=== PATIENT | male | born 1955 | race Caucasian/White ===

== ENCOUNTER → 2017-03-31 | Outpatient (CLI) | payer OTHER ==
--- NOTE | 2017-04-01 09:57 | MR ---
MRI CERVICAL SPINE: CLINICAL HISTORY: Cervical region spondylolisthesis per order. Headache with neck pain for 5 years pe r patient TECHNIQUE: Multiplanar, multisequence imaging of the cervical spine is performed without IV contrast. COMPARISON: Outside MRI cervical spine August 17, 2015. FINDINGS: Sagittal images of the cervical spine show the craniocervical junction to appear within nor mal limits. The cervical and upper thoracic spinal cord is normal in course, caliber, and signal. V ertebral alignment is anatomic. The vertebral body heights are normal. There is mild disc space gustavo rowing C5-C6 level redemonstrated. Small posterior disc herniation is seen at this level as well as a t C6-C7 level on sagittal images. Mild anterior spurring in the mid cervical spine is redemonstrated. There is heterogeneous increased T1 and T2 signal involving anterior inferior C5 endplate consistent with Modic type II degenerative change. Axial images show the C2-C3 level to appear within normal limits. Axial images at C3-C4 level show tiny central disc protrusion minimally effacing anterior thecal sac on axial image 43 and sagittal image 7, this in retrospect is not significantly changed from prior ex am. Bilateral neural foramina remain patent. Axial images at C4-C5 level remain within normal limits. Axial images at C5-C6 level show broad-based right paracentral disc protrusion effacing anterior thec al sac and causing asymmetric moderate right-sided neural foraminal narrowing. Left-sided neural fora men is mildly narrowed as there is some uncovertebral facet arthropathy felt present bilaterally. Axial images at C6-C7 level do not show disc herniation as well as sagittal image 7. Bilateral neural foramina remain patent. Axial images at C7-T1 level are felt to remain within normal limits. IMPRESSION: Stable multilevel degenerative changes in cervical spine most prominent at C5-C6 level as detailed above.
== END | disposition home or self-care (01) ==
LOC: RADMRIMAIN 17:03
PROVIDERS: ATTEND Physical Medicine & Rehabilitation
DX: M47.812 Spondylosis without myelopathy or radiculopathy, cervical region (principal)
CPT/HCPCS: 72141

== ENCOUNTER → 2019-05-01 | Outpatient (CLI) | payer MEDICARE ==
--- NOTE | 2019-05-02 12:01 | ECHOF ---
Referral Reason:R60.0 localized edema MEASUREMENTS -------- HEIGHT: 185.4 cm WEIGHT: 83.9 kg BP: 142/82 RVIDd: 4.1 cm (< 3.3) IVSd: 1.4 cm (0.6 - 1.1) LVIDd: 4.5 cm (3.9 - 5.3) LVPWd: 1.3 cm (0.6 - 1.1) IVSs: 1.6 cm LVIDs: 4.1 cm LVPWs: 1.5 cm LA Diam: 2.5 cm (2.7 - 3.8) LAESV Index (A-L): 27.54 ml/m Ao Diam: 3.7 cm (2.0 - 3.7) AV Cusp: 2.3 cm (1.5 - 2.6) MV EXCURSION: 16.226 mm (> 18.000) MV EF SLOPE: 30 mm/s (70 - 150) EPSS: 0.7 cm MV E Jeancarlos: 0.58 m/s MV DecT: 203 ms MV A Jeancarlos: 0.78 m/s MV E/A Ratio: 0.75 RAP: 5.00 mmHg RVSP: 26.84 mmHg TAPSE: 18.55 mm FINDINGS -------- Sinus rhythm. This was a technically adequate study. The left ventricular size is normal. There is moderate concentric left ventricular hypertrophy. O verall left ventricular systolic function is normal with, an EF between 60 - 65 %. The right ventricle is moderately enlarged. Normal LA size by volume 22+/-6 ml/m2. The right atrium is normal in size. Interatrial and interventricular septum intact. The aortic valve is trileaflet and appears structurally normal. There is trace to mild mitral regurgitation. Mild tricuspid regurgitation present. Right ventricular systolic pressure is normal at < 35 mmHg. Trace/mild (physiologic) pulmonic regurgitation. The aortic root size is normal. Normal inferior vena cava with normal inspiratory collapse consistent with estimated right atrial pre ssure of 5 mmHg. The inferior vena cava is mildly dilated. There is no pericardial effusion. CONCLUSIONS -------- 1. Sinus rhythm. 2. This was a technically adequate study. 3. The left ventricular size is normal. 4. There is moderate concentric left ventricular hypertrophy. 5. Overall left ventricular systolic function is normal with, an EF between 60 - 65 %. 6. The right ventricle is moderately enlarged. 7. Normal LA size by volume 22+/-6 ml/m2. 8. The right atrium is normal in size. 9. Interatrial and interventricular septum intact. 10. The aortic valve is trileaflet and appears structurally normal. 11. There is trace to mild mitral regurgitation. 12. Mild tricuspid regurgitation present. 13. Right ventricular systolic pressure is normal at < 35 mmHg. 14. Trace/mild (physiologic) pulmonic regurgitation. 15. The aortic root size is normal. 16. Normal inferior vena cava with normal inspiratory collapse consistent with estimated right atrial pressure of 5 mmHg. 17. The inferior vena cava is mildly dilated. 18. There is no pericardial effusion. FIRE SUPERVISOR: Aga Richardson RDCS
== END | disposition home or self-care (01) ==
LOC: RADECHMAIN 16:30
PROVIDERS: ATTEND Family Medicine
DX: I07.1 Rheumatic tricuspid insufficiency (principal); I86.8 Varicose veins of other specified sites
CPT/HCPCS: 93306

== ENCOUNTER 2020-09-09 13:52 | Inpatient (IN) | payer MEDICARE ==
[2020-09-09] MEDS ORDERED: SODIUM CHLORIDE 0.9% 500 ML 500 ML IV ONE (14:38)
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
[2020-09-09 15:29] LABS: Anisocytosis Slight; Hypochromasia Marked; MCH 17.3 pg (25.0-35.0); MCHC 28.2 g/dL (31.0-37.0); MCV 61.4 fL (80.0-100.0); Mean Platelet Volume 7.4; Microcytosis Marked; Platelet Count 558 k/uL (150-450); Poikilocytosis Moderate; RBC 3.13 m/uL (4.30-5.90); RDW 18.2 % (11.5-15.5)
[2020-09-09 15:35] LABS: Albumin 3.9 g/dL (3.5-5.0); Calcium 9.6 mg/dL (8.4-10.2); HGB 5.4 gm/dL (13.0-17.5); Potassium 4.3 mmol/L (3.5-5.1); Total Bilirubin 0.8 mg/dL (0.2-1.3); Total Protein 6.7 g/dL (6.3-8.2)
[2020-09-09 15:36] LABS: HCT 19.3 % (39.0-53.0)
[2020-09-09] MEDS ORDERED: PANTOPRAZOLE 40 MG/10 ML VIAL IVP STA (15:41)
[2020-09-09 15:46] LABS: INR 1.1 (<1.2); Partial Thromboplastin Time 22.9 sec (22.0-30.0); Prothrombin Time 11.5 sec (9.0-12.0)
[2020-09-09 15:48] LABS: Eosinophils # (M) 0.08 k/uL (0-0.7); Lymphocytes # (M) 1.05 k/uL (1.0-4.8); Monocytes # (M) 0.41 k/uL (0-1.0); Neutrophils # (M) 6.64 k/uL (1.3-7.7); Neutrophils % (M) 82 %; Nucleated Red Blood Cells 1 /100 WBC (0-0); Total Cells Counted 200; WBC 8.1 k/uL (3.8-10.6)
[2020-09-09 15:49] LABS: Polychromasia Present
--- NOTE | 2020-09-09 17:14 | CT ---
EXAM: CT brain wo con CLINICAL HISTORY: Altered mental status. COMPARISON: None TECHNIQUE: Contiguous axial noncontrast images of the brain were obtained. Coronal and sagittal refor mats were generated and reviewed. Automated dose reduction was used for this exam. FINDINGS: There is no evidence for intracranial hemorrhage, mass effect, midline shift or acute large vessel te rritory infarct. There is moderate bifrontal lobe encephalomalacia. There is moderate parenchymal vol ume loss. Otherwise mild white matter disease. Ventricular size and configuration is within normal limits for degree of parenchymal volume. The paranasal sinuses are clear. The mastoid air cells are clear. No evidence for calvarial fracture. IMPRESSION: No acute intracranial abnormality. Chronic findings as above.
[2020-09-09] MEDS ORDERED: NALOXONE 0.4 MG/ML 1 ML VIAL IV PRN (17:21)
[2020-09-09] MEDS ORDERED: lamoTRIgine 100 MG TAB PO SCH (21:00)
[2020-09-09] MEDS: TEMAZEPAM 15 MG CAP PO SCH (22:42)
[2020-09-09] MEDS: PREGABALIN 75 MG CAP PO SCH (22:42)
[2020-09-10] MEDS: PANTOPRAZOLE 40 MG/10 ML VIAL IVP SCH ×3 (01:29→20:41)
[2020-09-10] MEDS: SODIUM CHLORIDE 0.9% 1,000 ML IV SCH ×3 (01:30→20:41)
[2020-09-10] MEDS ORDERED: LORazepam 2 MG/ML INJ IV PRN ×3 (04:00)
[2020-09-10 08:13] LABS: Anisocytosis Moderate; Basophils % (A) 0 %; Eosinophils # (A) 0.1 k/uL (0-0.7); Eosinophils % (A) 1 %; HCT 22.2 % (39.0-53.0); Hypochromasia Marked; Lymphocytes # (A) 1.2 k/uL (1.0-4.8); Lymphocytes % (A) 18 %; MCH 19.8 pg (25.0-35.0); MCHC 29.4 g/dL (31.0-37.0); Mean Platelet Volume 7.9; Microcytosis Marked; Monocytes # (A) 0.3 k/uL (0-1.0); Monocytes % (A) 4 %; Neutrophils # (A) 5.2 k/uL (1.3-7.7); Neutrophils % (A) 75 %; Platelet Count 450 k/uL (150-450); Poikilocytosis Marked
[2020-09-10 08:21] LABS: HGB 6.5 gm/dL (13.0-17.5); MCV 67.4 fL (80.0-100.0)
[2020-09-10] MEDS: lamoTRIgine 100 MG TAB PO SCH (08:26)
[2020-09-10] MEDS: PREGABALIN 75 MG CAP PO SCH ×2 (08:26→20:41)
[2020-09-10] MEDS: SYMBICORT 160-4.5 MCG INHALER INHALATION SCH ×2 (08:38→20:00)
[2020-09-10] MEDS ORDERED: amLODIPine 10 MG TAB PO SCH (09:00)
[2020-09-10 09:09] LABS: African American GFR (CKD) >90 (>60 ml/min/1.73 sqM); Anion Gap 12 mmol/L; Blood Urea Nitrogen 28 mg/dL (9-20); Calcium 8.6 mg/dL (8.4-10.2); Carbon Dioxide 23 mmol/L (22-30); Chloride 97 mmol/L (98-107); Glucose 84 mg/dL (74-99); Non-African American GFR(CKD) 86 (>60 ml/min/1.73 sqM); Potassium 3.4 mmol/L (3.5-5.1); Sodium 132 mmol/L (137-145)
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
[2020-09-10] MEDS ORDERED: LIDOCAINE 1% (10MG/ML) FOR IV START INTRADERMA PRN (14:42)
[2020-09-10] MEDS ORDERED: PEG 3350-NA SULF,BICARB,CL/KCL 4,000 ML BOTTLE PO ONE (16:00)
[2020-09-10] MEDS: THIAMINE 100 MG TAB PO SCH (16:34)
[2020-09-10 17:56] LABS: % Iron Saturation 45.43 (15.00-50.00)
[2020-09-10 18:27] LABS: Appearance,Urine Cloudy (Clear); Bacteria,Urine Many /hpf; Bilirubin,Urine Negative (Negative); Blood,Urine Negative (Negative); Color,Urine Yellow; Glucose,Urine (UA) Negative (Negative); Ketones,Urine Negative (Negative); Leukocyte Esterase,Urine Large (Negative); Mucus,Urine Many /hpf; Nitrite,Urine Positive (Negative); Protein,Urine Trace (Negative); Specific Gravity,Urine 1.023 (1.001-1.035); Urobilinogen,Urine <2.0 mg/dL (<2.0); WBC,Urine 133 /hpf (0-5)
[2020-09-10 18:32] LABS: Amphetamine Screen,Urine Not Detected (NotDetected); Barbiturate Screen,Urine Not Detected (NotDetected); Benzodiazepines Screen,Urine Detected (NotDetected); Cocaine Screen,Urine Not Detected (NotDetected); Methadone Screen, Urine Not Detected (NotDetected); Opiate Screen,Urine Not Detected (NotDetected); Oxycodone Screen, Urine Not Detected (NotDetected); Phencyclidine Screen,Urine Not Detected (NotDetected); Tricyclic Antidepressant,Urine Not Detected (NotDetected); Urn Cannabinoid Scrn Not Detected (NotDetected)
[2020-09-10] MEDS ORDERED: SODIUM CHLORIDE 0.9% 500 ML 500 ML IV ONE (19:00)
[2020-09-10] MEDS: TEMAZEPAM 15 MG CAP PO SCH (20:41)
[2020-09-10 22:04] LABS: Glucose,Whole Blood 116 mg/dL (75-99)
[2020-09-10] MEDS ORDERED: MIDODRINE 5 MG TAB PO ONE (22:13)
[2020-09-10] MEDS ORDERED: FUROSEMIDE 10 MG/ML 2 ML VIAL IV ONE (22:14)
[2020-09-11] MEDS: LACTATED RINGERS 1,000 ML IV SCH ×2 (00:09→17:27)
[2020-09-11] MEDS: ALBUTEROL NEBULIZED 2.5 MG/3 ML INHALATION PRN (03:42)
[2020-09-11] MEDS: THIAMINE 100 MG TAB PO SCH ×2 (04:57→17:22)
[2020-09-11 08:19] LABS: Anisocytosis Moderate; HCT 25.3 % (39.0-53.0); HGB 7.9 gm/dL (13.0-17.5); Hypochromasia Marked; MCH 21.5 pg (25.0-35.0); MCHC 31.1 g/dL (31.0-37.0); MCV 69.3 fL (80.0-100.0); Microcytosis Marked; Platelet Count 378 k/uL (150-450); Poikilocytosis Marked; RBC 3.66 m/uL (4.30-5.90); RDW 23.5 % (11.5-15.5); WBC 7.6 k/uL (3.8-10.6)
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
[2020-09-11 08:41] LABS: ALT 10 U/L (4-49); AST 21 U/L (17-59); African American GFR (CKD) >90 (>60 ml/min/1.73 sqM); Albumin 2.8 g/dL (3.5-5.0); Alkaline Phosphatase 86 U/L (38-126); Anion Gap 9 mmol/L; Blood Urea Nitrogen 16 mg/dL (9-20); Calcium 8.1 mg/dL (8.4-10.2); Carbon Dioxide 27 mmol/L (22-30); Chloride 97 mmol/L (98-107); Glucose 92 mg/dL (74-99); Non-African American GFR(CKD) >90 (>60 ml/min/1.73 sqM); Potassium 3.2 mmol/L (3.5-5.1); Sodium 133 mmol/L (137-145); Total Bilirubin 1.2 mg/dL (0.2-1.3)
[2020-09-11] MEDS: PREGABALIN 75 MG CAP PO SCH ×2 (08:57→20:07)
[2020-09-11] MEDS: PANTOPRAZOLE 40 MG/10 ML VIAL IVP SCH ×2 (08:57→20:07)
[2020-09-11] MEDS: lamoTRIgine 100 MG TAB PO SCH (08:57)
[2020-09-11] MEDS ORDERED: ENOXAPARIN 30 MG/0.3 ML SYRINGE SQ SCH (09:00)
[2020-09-11] MEDS: SYMBICORT 160-4.5 MCG INHALER INHALATION SCH ×2 (09:34→21:30)
--- NOTE | 2020-09-11 10:04 | XR ---
EXAMINATION TYPE: XR chest 2V DATE OF EXAM: 09/11/2020 COMPARISON: None HISTORY: 65 year-old male shortness of breath TECHNIQUE: AP and lateral views FINDINGS: Heart mildly enlarged. Hyperinflation. Multifocal consolidation right perihilar region and left great er than right mid and lower lungs. IMPRESSION: COPD and mild cardiomegaly. There are multifocal areas of consolidation. Correlate for multifocal pne umonia including possibility of COVID pneumonia. Patchy pulmonary edema is also possible but may be l ess likely as no significant effusions are identified.
[2020-09-11] MEDS ORDERED: Potassium Replacement Protocol 1 EACH MISC MISCELLANE PRN (11:02)
--- NOTE | 2020-09-11 11:04 | P.PN ---
Subjective 65-year-old male was brought in by his for altered mental status patient is able to provide good history me alert oriented times close to 3 when I evaluated the patient but patient is a poor historian doesn't appear to have some alcohol related the encephalopathy chronic and dementia. Patient does drink alcohol every day. Not willing to quit alcohol patient is basically admitted for severe anemia with hemoglobin of around 5.5-, received are 2 units of PRBC transfusion and patient was in hemoglobin is 6.5 to give him 1 more unit of PRBC. Patient denied any blood in stools at all stools and panel will be obtained. Patient was started on Protonix. Patient is very clear about not quitting alcohol and he believes he doesn't drink much he only drinks after paint of hard liquor every day. Patient has low MCV . 09/11/2020 Patient doesn't have any more episodes of GI bleed patient can use to be in alcohol withdrawal precautions. Patient will undergo upper GI endoscopy patient is on 6 L of oxygen, chest x-ray there is a possibility of pulmonary edema. covid 19 PCI to is negative. We'll obtain a BNP and an echocardiogram. Patient blood pressure is still low because of which I'm not giving him on Lasix at this time. When his blood pressure can tolerate patient will be given a 20 mg of IV Lasix patient did urine is abnormal hand has a symptom any bacteria received antibiotics last night which will be discontinued if patient remains a bit hyponatremic still has some confusion. He is also being treated for alcohol withdrawals potassium is low which will be replaced. Constitutional: Denied any fatigue denied any fever. Cardio vascular: denied any chest pain, palpitations Gastrointestinal denied any nausea vomiting Pulmonary: Denied any shortness of breath cough Neurologic denied any new focal deficits he is a poor historian not a reliable historian All inpatient medications were reviewed and appropriate changes in these medications as dictated in the interval history and assessment and plan. Objective - Vital Signs Vital signs: Vital Signs Temp 99.5 F 09/11/20 08:00 Pulse 71 09/11/20 08:00 Resp 18 09/11/20 08:00 BP 93/62 09/11/20 08:00 Pulse Ox 95 09/11/20 08:00 Intake & Output 09/10/20 09/11/20 09/11/20 18:59 06:59 18:59 Intake Total 860 Output Total 750 600 Balance 110 -600 Weight 76.5 kg Intake: Oral 550 Blood Product 310 Rc As-1 Unit 310 [id number] Output: Urine 750 600 Other: Voiding Method Urinal Urinal # Voids 3 # Bowel Movements 1 - Exam PHYSICAL EXAMINATION: GENERAL: The patient is alert and oriented x3, not in any acute distress. Well developed, well nourished. HEENT: Pupils are round and equally reacting to light. EOMI. No scleral icterus. Does have conjunctival pallor. Normocephalic, atraumatic. No pharyngeal erythema. No thyromegaly. CARDIOVASCULAR: S1 and S2 present. No murmurs, rubs, or gallops. PULMONARY: Chest is clear to auscultation, no wheezing or crackles. ABDOMEN: Soft, nontender, nondistended, normoactive bowel sounds. No palpable organomegaly. MUSCULOSKELETAL: No joint swelling or deformity. EXTREMITIES: No cyanosis, clubbing, or pedal edema. NEUROLOGICAL: Gross neurological examination did not reveal any focal deficits. SKIN: No rashes. - Labs CBC & Chem 7: 09/11/20 07:43 09/11/20 07:43 Labs: Abnormal Lab Results - Last 24 Hours (Table) 09/09/20 09/10/20 09/10/20 Range/Units 15:59 17:05 22:02 RBC (4.30-5.90) m/uL Hgb (13.0-17.5) gm/dL Hct (39.0-53.0) % MCV (80.0-100.0) fL MCH (25.0-35.0) pg RDW (11.5-15.5) % Sodium (137-145) mmol/L Potassium (3.5-5.1) mmol/L Chloride (98-107) mmol/L POC Glucose (mg/dL) 116 H (75-99) mg/dL Calcium (8.4-10.2) mg/dL Total Protein (6.3-8.2) g/dL Albumin (3.5-5.0) g/dL Urine Protein Trace H (Negative) Ur Leukocyte Esterase Large H (Negative) Urine WBC 133 H (0-5) /hpf Urine Bacteria Many H (None) /hpf Urine Mucus Many H (None) /hpf U Benzodiazepines Scrn Detected H (NotDetected) Crossmatch See Detail 09/11/20 09/11/20 Range/Units 07:43 07:43 RBC 3.66 L (4.30-5.90) m/uL Hgb 7.9 L (13.0-17.5) gm/dL Hct 25.3 L (39.0-53.0) % MCV 69.3 L (80.0-100.0) fL MCH 21.5 L (25.0-35.0) pg RDW 23.5 H (11.5-15.5) % Sodium 133 L (137-145) mmol/L Potassium 3.2 L (3.5-5.1) mmol/L Chloride 97 L (98-107) mmol/L POC Glucose (mg/dL) (75-99) mg/dL Calcium 8.1 L (8.4-10.2) mg/dL Total Protein 5.0 L (6.3-8.2) g/dL Albumin 2.8 L (3.5-5.0) g/dL Urine Protein (Negative) Ur Leukocyte Esterase (Negative) Urine WBC (0-5) /hpf Urine Bacteria (None) /hpf Urine Mucus (None) /hpf U Benzodiazepines Scrn (NotDetected) Crossmatch Microbiology - Last 24 Hours (Table) 09/10/20 17:05 Urine Culture - Preliminary Urine,Voided Assessment and Plan Plan: -Severe anemia, symptomatic but there is no evidence of acute GI bleed at this time or any other acute bleed at this time. His hemoglobin is about 7 and stable no more GI bleed at this time -Possible altered mental status secondary to may be metabolic encephalopathy or May be related to anemia. Patient also appears to have some chronic encephalopathy and maybe dementia from chronic alcoholism -Alcohol abuse: Patient was counseled in spite of which patient is not willing to quit alcohol. Patient will be treated for withdrawals while he is here if he has any -Hyponatremia initial hypovolemia received IV fluids presently volume overloaded discontinued and IV fluids at this time. We will obtain a BNP, echocardiogram blood pressure remains low because of which I'm not giving him IV Lasix at this time -Acute approximately respiratory failure probably secondary to CHF -Asymptomatic back she is will not require any antibiotics antibiotics will be discontinued -Hypertension patient is actually hypotensive hold off on amlodipine . -Tachycardia secondary to anemia, resolved DVT prophylaxis with Lovenox
--- NOTE | 2020-09-11 12:00 | ECHOF ---
Referral Reason:CHF MEASUREMENTS -------- HEIGHT: 188.0 cm WEIGHT: 83.9 kg BP: RVIDd: 2.8 cm (< 3.3) IVSd: 1.5 cm (0.6 - 1.1) LVIDd: 4.4 cm (3.9 - 5.3) LVPWd: 1.5 cm (0.6 - 1.1) IVSs: 2.3 cm LVIDs: 2.7 cm LVPWs: 1.7 cm LA Diam: 3.3 cm (2.7 - 3.8) LAESV Index (A-L): 24.76 ml/m Ao Diam: 3.9 cm (2.0 - 3.7) AV Cusp: 2.1 cm (1.5 - 2.6) MV EXCURSION: 16.399 mm (> 18.000) MV EF SLOPE: 48 mm/s (70 - 150) EPSS: 2.0 cm RAP: 5.00 mmHg RVSP: 37.36 mmHg FINDINGS -------- Atrial fibrillation. This was a technically adequate study. The left ventricular size is normal. There is moderate concentric left ventricular hypertrophy. O verall left ventricular systolic function is mildly impaired with, an EF between 45 - 50 %. The right ventricle is normal in size. Normal LA size by volume 22+/-6 ml/m2. The right atrium is normal in size. Interatrial and interventricular septum intact. There is mild aortic valve sclerosis. The mitral valve is normal. Mild tricuspid regurgitation present. There is mild pulmonary hypertension. The right ventricular systolic pressure, as measured by Doppler, is 37.36mmHg. There is no pulmonic regurgitation present. The aortic root size is normal. Normal inferior vena cava with normal inspiratory collapse consistent with estimated right atrial pre ssure of 5 mmHg. There is no pericardial effusion. CONCLUSIONS -------- 1. The left ventricular size is normal. 2. There is moderate concentric left ventricular hypertrophy. 3. Overall left ventricular systolic function is mildly impaired with, an EF between 45 - 50 %. 4. There is mild aortic valve sclerosis. 5. Mild tricuspid regurgitation present. 6. There is mild pulmonary hypertension. 7. The right ventricular systolic pressure, as measured by Doppler, is 37.36mmHg. 8. There is no pericardial effusion. FLEXOGRAPHIC PRESS PLATE SETTER: Aga Richardson RDCS
[2020-09-11] MEDS ORDERED: MIDODRINE 5 MG TAB PO ONE (13:00)
[2020-09-11] MEDS ORDERED: LIDOCAINE 1% INJ 10MG/ML (20 ML MDV) ONE (13:06)
[2020-09-11] MEDS ORDERED: MIDAZOLAM 2 MG/2 ML VIAL ONE (13:06)
[2020-09-11] MEDS ORDERED: PROPOFOL 10 MG/ML 20 ML VIAL IV ONE (13:06)
[2020-09-11] MEDS ORDERED: IV FLUID CONTINUATION 1,000 ML IV ONE (13:15)
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
[2020-09-11] MEDS: TEMAZEPAM 15 MG CAP PO SCH (20:07)
[2020-09-12] MEDS: THIAMINE 100 MG TAB PO SCH ×2 (07:08→18:03)
[2020-09-12] MEDS: SYMBICORT 160-4.5 MCG INHALER INHALATION SCH ×2 (07:22→21:39)
[2020-09-12] MEDS: FLUCONAZOLE 100 MG TAB PO SCH (08:23)
[2020-09-12] MEDS: lamoTRIgine 100 MG TAB PO SCH (08:23)
[2020-09-12] MEDS: PANTOPRAZOLE 40 MG/10 ML VIAL IVP SCH ×2 (08:24→21:40)
[2020-09-12] MEDS: PREGABALIN 75 MG CAP PO SCH ×2 (08:24→21:40)
[2020-09-12] MEDS: ENOXAPARIN 40 MG/0.4 ML SYRINGE SQ SCH (08:25)
[2020-09-12 09:25] LABS: Potassium 3.2 mmol/L (3.5-5.1)
[2020-09-12 09:26] LABS: African American GFR (CKD) >90 (>60 ml/min/1.73 sqM); Anion Gap 7 mmol/L; Blood Urea Nitrogen 17 mg/dL (9-20); Calcium 8.3 mg/dL (8.4-10.2); Carbon Dioxide 28 mmol/L (22-30); Chloride 96 mmol/L (98-107); Glucose 86 mg/dL (74-99); Magnesium 1.6 mg/dL (1.6-2.3); Non-African American GFR(CKD) >90 (>60 ml/min/1.73 sqM); Sodium 131 mmol/L (137-145)
[2020-09-12] MEDS ORDERED: FUROSEMIDE 10 MG/ML 2 ML VIAL IV ONE (09:31)
[2020-09-12] MEDS ORDERED: HALOPERIDOL LACTATE 5 MG/ML 1 ML VIAL IVP PRN (09:43)
[2020-09-12] MEDS ORDERED: QUEtiapine 25 MG TAB PO PRN (09:43)
--- NOTE | 2020-09-12 09:59 | P.PN ---
Subjective Progress Note Date: 09/12/20 Principal diagnosis: Altered mental status The patient seen and examined lying in bed without any acute changes through the night. He is status post upper and lower endoscopy, however colonoscopy could not be completed due to poor prep and had to be aborted. Upper endoscopy re vealed grade B esophagitis with Isabel. Patient was started on Diflucan. Patient denies any abdominal pain, nausea, or vomiting. No signs or symptoms of GI bleed. Objective - Vital Signs Vital signs: Vital Signs Temp 97.9 F 09/12/20 03:13 Pulse 90 09/12/20 03:13 Resp 20 09/12/20 03:13 BP 90/48 09/12/20 03:13 Pulse Ox 93 L 09/12/20 03:13 Intake & Output 09/11/20 09/12/20 09/12/20 18:59 06:59 18:59 Intake Total 300 240 Output Total 100 Balance 200 240 Weight 77 kg Intake: IV 300 Oral 240 Output: Urine 100 Other: Voiding Method Urinal # Voids 1 - Exam General appearance: The patient is alert, orientedx3, pleasantly confused. He appears in no acute distress. HET: Head is normocephalic and atraumatic. Conjunctiva pink. Sclera anicteric. Neck: Supple without lymphadenopathy. Abdomen: Soft, nontender, nondistended with bowel sounds. No guarding or rigidity. Extremities: Normal skin color and turgor. No pedal edema Skin: No rashes, no jaundice Neurological: No focal deficits. Alert and oriented 3. - Labs CBC & Chem 7: 09/11/20 07:43 09/12/20 08:04 Labs: Abnormal Lab Results - Last 24 Hours (Table) 09/12/20 Range/Units 08:04 Sodium 131 L (137-145) mmol/L Potassium 3.2 L (3.5-5.1) mmol/L Chloride 96 L (98-107) mmol/L Calcium 8.3 L (8.4-10.2) mg/dL Microbiology - Last 24 Hours (Table) 09/10/20 17:05 Urine Culture - Preliminary Urine,Voided Gram Neg Bacilli Assessment and Plan (1) Microcytic anemia Narrative/Plan: 66-year-old male with medical history significant for hypertension, tobacco abuse and alcohol abuse who presented with altered mental status. Patient found to have a severe microcytic anemia of unknown etiology. Patient denies any signs or symptoms of GI bleeding and had stool testing which was negative for occult blood, unclear if anemia is secondary to occult GI bleed in the setting of microcytic anemia, hematopoietic suppression given chronic alcohol abuse or other etiology. Patient underwent upper and lower endoscopy. Upper endoscopy included findings of mild gastritis, LA grade B esophagitis, with suspicion of Isabel esophagitis. Colonoscopy was aborted due to poor prep. Patient recommended for outpatient follow-up including repeat colonoscopy. Current Visit: Yes Status: Acute Code(s): D50.9 - IRON DEFICIENCY ANEMIA, UNSPECIFIED SNOMED Code(s): 557177041 Plan: Supportive care Advance diet as tolerated Patient started on Diflucan 100 mg daily, prescription sent Daily CBC and transfuse if hemoglobin less than 7 Repeat ammonia ordered Discussed with patient colonoscopy had poor prep it was aborted. He will need outpatient follow-up and rescheduled for colonoscopy. The patient may be discharged home from a gastroenterology standpoint Thank you for this consultation, we will be on standby. Please do not hesitate to call us back if needed. Dr. Miller I agree with the dictator's note, documented as a scribe by Iasbel Martinez.
[2020-09-12] MEDS: LEVOFLOXACIN 500MG-D5W PMX 500 MG in DEXTROSE/WATER 1 100ML.BAG IVPB SCH (10:08)
--- NOTE | 2020-09-12 10:42 | P.PN ---
Subjective 65-year-old male was brought in by his for altered mental status patient is able to provide good history me alert oriented times close to 3 when I evaluated the patient but patient is a poor historian doesn't appear to have some alcohol related the encephalopathy chronic and dementia. Patient does drink alcohol every day. Not willing to quit alcohol patient is basically admitted for severe anemia with hemoglobin of around 5.5-, received are 2 units of PRBC transfusion and patient was in hemoglobin is 6.5 to give him 1 more unit of PRBC. Patient denied any blood in stools at all stools and panel will be obtained. Patient was started on Protonix. Patient is very clear about not quitting alcohol and he believes he doesn't drink much he only drinks after paint of hard liquor every day. Patient has low MCV . 09/11/2020 Patient doesn't have any more episodes of GI bleed patient can use to be in alcohol withdrawal precautions. Patient will undergo upper GI endoscopy patient is on 6 L of oxygen, chest x-ray there is a possibility of pulmonary edema. covid 19 PCI to is negative. We'll obtain a BNP and an echocardiogram. Patient blood pressure is still low because of which I'm not giving him on Lasix at this time. When his blood pressure can tolerate patient will be given a 20 mg of IV Lasix patient did urine is abnormal hand has a symptom any bacteria received antibiotics last night which will be discontinued if patient remains a bit hyponatremic still has some confusion. He is also being treated for alcohol withdrawals potassium is low which will be replaced. 09/12/2020 Patient chest x-ray from yesterday was showing bilateral infiltrates concerning for CHF or atypical pneumonia. Patient BNP is only 1400. Patient doesn't have any fevers will repeat the Covid 19 test again. Patient will be given a dose of Lasix if his blood pressure can tolerate will give another dose of Lasix will replace magnesium. Patient had an upper GI endoscopy which showed a candy lately esophagitis because of poor prep colonoscopy was incomplete. A she is more agitated at this time. Patient will be started on levofloxacin. We will obtain EKG as patient is on multiple medications that can prolong QT including Haldol, levofloxacin, fluconazole. Patient is confused and agitated Review of systems: Unable to obtain due to his clinical condition he is a poor historian not a reliable historian All inpatient medications were reviewed and appropriate changes in these medications as dictated in the interval history and assessment and plan. Objective - Vital Signs Vital signs: Vital Signs Temp 97.9 F 09/12/20 03:13 Pulse 90 09/12/20 03:13 Resp 20 09/12/20 03:13 BP 90/48 09/12/20 03:13 Pulse Ox 93 L 09/12/20 03:13 Intake & Output 09/11/20 09/12/20 09/12/20 18:59 06:59 18:59 Intake Total 300 240 Output Total 100 Balance 200 240 Weight 77 kg Intake: IV 300 Oral 240 Output: Urine 100 Other: Voiding Method Urinal # Voids 1 - Exam PHYSICAL EXAMINATION: GENERAL: The patient is alert and oriented x1-2, not in any acute distress. Well developed, well nourished. Patient is bit agitated confused HEENT: Pupils are round and equally reacting to light. EOMI. No scleral icterus. Does have conjunctival pallor. Normocephalic, atraumatic. No pharyngeal erythema. No thyromegaly. CARDIOVASCULAR: S1 and S2 present. No murmurs, rubs, or gallops. PULMONARY: Chest is clear to auscultation, no wheezing or crackles. ABDOMEN: Soft, nontender, nondistended, normoactive bowel sounds. No palpable organomegaly. MUSCULOSKELETAL: No joint swelling or deformity. EXTREMITIES: No cyanosis, clubbing, or pedal edema. NEUROLOGICAL: Gross neurological examination did not reveal any focal deficits. SKIN: No rashes. - Labs CBC & Chem 7: 09/11/20 07:43 09/12/20 08:04 Labs: Abnormal Lab Results - Last 24 Hours (Table) 09/12/20 Range/Units 08:04 Sodium 131 L (137-145) mmol/L Potassium 3.2 L (3.5-5.1) mmol/L Chloride 96 L (98-107) mmol/L Calcium 8.3 L (8.4-10.2) mg/dL Microbiology - Last 24 Hours (Table) 09/10/20 17:05 Urine Culture - Preliminary Urine,Voided Gram Neg Bacilli Assessment and Plan Plan: -Severe anemia, symptomatic but there is no evidence of acute GI bleed at this time or any other acute bleed at this time. His hemoglobin is about 7 and stable no more GI bleed at this time. Patient underwent upper GI endoscopy and colonoscopy upper GI endoscopy showed Isabel esophagitis patient was started on flucanazole -Metabolic and toxic encephalopathy: Secondary to infection like atypical pneumonia or CHF along with the some chronic encephalopathy from alcoholism chronic -Acute hypoxic respiratory failure possibly of atypical pneumonia patient was started on levofloxacin and cannot rule out CHF patient will be given a dose of Lasix patient is presently on 4 L is supposed to 60 to assess today -Alcohol abuse: Patient was counseled in spite of which patient is not willing to quit alcohol. Presently confused but no other withdrawal symptoms -Hyponatremia initial hypovolemia received IV fluids presently volume overloaded discontinued and IV fluids at this time. Echocardiogram showed EF of around 45- 50% possibility of congestive heart failure chronic systolic dysfunction with mild acute exacerbation -Asymptomatic bacteriuria , urine cultures are positive for gram-negative bacilli patient was started on levofloxacin mainly for possible atypical pneumonia. Covid 19 will be retested again -Hypertension patient is actually hypotensive hold off on amlodipine . -Tachycardia secondary to anemia, resolved DVT prophylaxis with Lovenox
[2020-09-12] MEDS: MAGNESIUM SULFATE-D5W PMX 1 GM in DEXTROSE/WATER 1 100ML.BAG IVPB SCH ×2 (11:49→14:47)
[2020-09-12] MEDS: POTASSIUM CHLORIDE ER 20 MEQ TAB.ER PO SCH ×4 (11:49→23:22)
[2020-09-12] MEDS: TEMAZEPAM 15 MG CAP PO SCH (21:39)
[2020-09-13] MEDS: THIAMINE 100 MG TAB PO SCH ×2 (06:34→17:34)
[2020-09-13] MEDS: POTASSIUM CHLORIDE ER 20 MEQ TAB.ER PO SCH ×2 (06:34→07:30)
[2020-09-13 07:15] LABS: African American GFR (CKD) >90 (>60 ml/min/1.73 sqM); Anion Gap 8 mmol/L; Blood Urea Nitrogen 17 mg/dL (9-20); Carbon Dioxide 27 mmol/L (22-30); Chloride 95 mmol/L (98-107); Glucose 88 mg/dL (74-99); Non-African American GFR(CKD) >90 (>60 ml/min/1.73 sqM); Potassium 3.6 mmol/L (3.5-5.1); Sodium 130 mmol/L (137-145)
[2020-09-13 07:45] LABS: Anisocytosis Marked; Basophils % (A) 0 %; Eosinophils # (A) 0.1 k/uL (0-0.7); Eosinophils % (A) 1 %; HCT 23.5 % (39.0-53.0); Hypochromasia Marked; Lymphocytes % (A) 12 %; MCH 20.9 pg (25.0-35.0); MCHC 29.6 g/dL (31.0-37.0); MCV 70.7 fL (80.0-100.0); Mean Platelet Volume 6.9; Microcytosis Marked; Monocytes # (A) 0.6 k/uL (0-1.0); Monocytes % (A) 7 %; Neutrophils # (A) 6.5 k/uL (1.3-7.7); Neutrophils % (A) 78 %; Platelet Count 336 k/uL (150-450); Poikilocytosis Marked; RBC 3.32 m/uL (4.30-5.90); RDW 24.9 % (11.5-15.5); WBC 8.2 k/uL (3.8-10.6)
[2020-09-13] MEDS: SYMBICORT 160-4.5 MCG INHALER INHALATION SCH ×2 (07:48→19:30)
[2020-09-13] MEDS: PREGABALIN 75 MG CAP PO SCH ×2 (09:36→20:45)
[2020-09-13] MEDS: FLUCONAZOLE 100 MG TAB PO SCH (09:36)
[2020-09-13] MEDS: lamoTRIgine 100 MG TAB PO SCH (09:36)
[2020-09-13] MEDS: ENOXAPARIN 40 MG/0.4 ML SYRINGE SQ SCH (09:37)
[2020-09-13] MEDS: PANTOPRAZOLE 40 MG/10 ML VIAL IVP SCH ×2 (09:37→20:45)
[2020-09-13] MEDS: LEVOFLOXACIN 500MG-D5W PMX 500 MG in DEXTROSE/WATER 1 100ML.BAG IVPB SCH (10:01)
[2020-09-13] MEDS: LACTATED RINGERS 1,000 ML IV SCH ×2 (10:03→17:34)
[2020-09-13 14:46] LABS: Glucose,Whole Blood 99 mg/dL (75-99)
--- NOTE | 2020-09-13 16:36 | P.PN ---
Subjective 65-year-old male was brought in by his for altered mental status patient is able to provide good history me alert oriented times close to 3 when I evaluated the patient but patient is a poor historian doesn't appear to have some alcohol related the encephalopathy chronic and dementia. Patient does drink alcohol every day. Not willing to quit alcohol patient is basically admitted for severe anemia with hemoglobin of around 5.5-, received are 2 units of PRBC transfusion and patient was in hemoglobin is 6.5 to give him 1 more unit of PRBC. Patient denied any blood in stools at all stools and panel will be obtained. Patient was started on Protonix. Patient is very clear about not quitting alcohol and he believes he doesn't drink much he only drinks after paint of hard liquor every day. Patient has low MCV . 09/11/2020 Patient doesn't have any more episodes of GI bleed patient can use to be in alcohol withdrawal precautions. Patient will undergo upper GI endoscopy patient is on 6 L of oxygen, chest x-ray there is a possibility of pulmonary edema. covid 19 PCI to is negative. We'll obtain a BNP and an echocardiogram. Patient blood pressure is still low because of which I'm not giving him on Lasix at this time. When his blood pressure can tolerate patient will be given a 20 mg of IV Lasix patient did urine is abnormal hand has a symptom any bacteria received antibiotics last night which will be discontinued if patient remains a bit hyponatremic still has some confusion. He is also being treated for alcohol withdrawals potassium is low which will be replaced. 09/12/2020 Patient chest x-ray from yesterday was showing bilateral infiltrates concerning for CHF or atypical pneumonia. Patient BNP is only 1400. Patient doesn't have any fevers will repeat the Covid 19 test again. Patient will be given a dose of Lasix if his blood pressure can tolerate will give another dose of Lasix will replace magnesium. Patient had an upper GI endoscopy which showed a candy lately esophagitis because of poor prep colonoscopy was incomplete. A she is more agitated at this time. Patient will be started on levofloxacin. We will obtain EKG as patient is on multiple medications that can prolong QT including Haldol, levofloxacin, fluconazole. Patient is confused and agitated. 09/13/2020 Patient looks better today patient is was limb 4 L of oxygen patient still appears to have some pulmonary edema patient was started on 20 mg IV Lasix. Patient probably will need subacute intimidation although patient will lead prior authorization from insurance to go to subacute rehabilitation. Review of systems: Unable to obtain due to his clinical condition he is a poor historian not a reliable historian All inpatient medications were reviewed and appropriate changes in these medications as dictated in the interval history and assessment and plan. Objective - Vital Signs Vital signs: Vital Signs Temp 98.7 F 09/13/20 08:00 Pulse 92 09/13/20 14:51 Resp 20 09/13/20 14:51 BP 107/63 09/13/20 14:51 Pulse Ox 93 L 09/13/20 15:40 Intake & Output 09/12/20 09/13/20 09/13/20 18:59 06:59 18:59 Intake Total 240 480 Output Total 400 Balance 240 80 Weight 75.5 kg Intake: Oral 240 480 Output: Urine 400 Other: Voiding Method Urinal # Voids 2 - Exam PHYSICAL EXAMINATION: GENERAL: The patient is alert and oriented x1-2, not in any acute distress. Well developed, well nourished. Patient is not agitated today. HEENT: Pupils are round and equally reacting to light. EOMI. No scleral icterus. Does have conjunctival pallor. Normocephalic, atraumatic. No pharyngeal erythema. No thyromegaly. CARDIOVASCULAR: S1 and S2 present. No murmurs, rubs, or gallops. PULMONARY: Chest is clear to auscultation, no wheezing or crackles. ABDOMEN: Soft, nontender, nondistended, normoactive bowel sounds. No palpable organomegaly. MUSCULOSKELETAL: No joint swelling or deformity. EXTREMITIES: No cyanosis, clubbing, or pedal edema. NEUROLOGICAL: Gross neurological examination did not reveal any focal deficits. SKIN: No rashes. - Labs CBC & Chem 7: 09/13/20 06:22 09/13/20 08:47 Labs: Abnormal Lab Results - Last 24 Hours (Table) 09/12/20 09/13/20 09/13/20 Range/Units 16:52 00:57 06:22 RBC (4.30-5.90) m/uL Hgb (13.0-17.5) gm/dL Hct (39.0-53.0) % MCV (80.0-100.0) fL MCH (25.0-35.0) pg MCHC (31.0-37.0) g/dL RDW (11.5-15.5) % Sodium 130 L (137-145) mmol/L Potassium 3.4 L 3.3 L (3.5-5.1) mmol/L Chloride 95 L (98-107) mmol/L Calcium 8.0 L (8.4-10.2) mg/dL 09/13/20 Range/Units 06:22 RBC 3.32 L (4.30-5.90) m/uL Hgb 7.0 L (13.0-17.5) gm/dL Hct 23.5 L (39.0-53.0) % MCV 70.7 L (80.0-100.0) fL MCH 20.9 L (25.0-35.0) pg MCHC 29.6 L (31.0-37.0) g/dL RDW 24.9 H (11.5-15.5) % Sodium (137-145) mmol/L Potassium (3.5-5.1) mmol/L Chloride (98-107) mmol/L Calcium (8.4-10.2) mg/dL Microbiology - Last 24 Hours (Table) 09/10/20 17:05 Urine Culture - Final Urine,Voided Klebsiella oxytoca Assessment and Plan Plan: -Severe anemia, symptomatic but there is no evidence of acute GI bleed at this time or any other acute bleed at this time. His hemoglobin is about 7 and stable no more GI bleed at this time. Patient underwent upper GI endoscopy and colonoscopy upper GI endoscopy showed Isabel esophagitis patient was started on flucanazole -Metabolic and toxic encephalopathy: Secondary to infection like atypical pneumonia or CHF along with the some chronic encephalopathy from alcoholism chronic -Acute hypoxic respiratory failure possibly of atypical pneumonia patient was started on levofloxacin and cannot rule out CHF patient will be given a dose of Lasix patient is presently on 4 L patient was started on 20 mg IV twice a day of Lasix -Alcohol abuse: Patient was counseled in spite of which patient is not willing to quit alcohol. Presently confused but no other withdrawal symptoms -Hyponatremia initial hypovolemia received IV fluids presently volume overloaded discontinued and IV fluids at this time. Echocardiogram showed EF of around 45- 50% possibility of congestive heart failure chronic systolic dysfunction with mild acute exacerbation -Asymptomatic bacteriuria , urine cultures are positive for gram-negative bacilli patient was started on levofloxacin mainly for possible atypical pneumonia. Covid 19 PCR is negative twice during this hospitalization -Hypertension patient is actually hypotensive hold off on amlodipine . -Tachycardia secondary to anemia, resolved DVT prophylaxis with Lovenox
[2020-09-13] MEDS: FUROSEMIDE 10 MG/ML 2 ML VIAL IV SCH (17:34)
[2020-09-13] MEDS: TEMAZEPAM 15 MG CAP PO SCH (20:45)
[2020-09-14] MEDS: FUROSEMIDE 10 MG/ML 2 ML VIAL IV SCH ×2 (03:40→16:38)
[2020-09-14] MEDS: THIAMINE 100 MG TAB PO SCH ×2 (06:38→17:10)
[2020-09-14] MEDS: SYMBICORT 160-4.5 MCG INHALER INHALATION SCH ×2 (08:52→20:11)
[2020-09-14] MEDS: PANTOPRAZOLE 40 MG/10 ML VIAL IVP SCH ×2 (09:09→19:57)
[2020-09-14] MEDS: ENOXAPARIN 40 MG/0.4 ML SYRINGE SQ SCH (09:09)
[2020-09-14] MEDS: PREGABALIN 75 MG CAP PO SCH ×2 (09:09→19:58)
[2020-09-14] MEDS: lamoTRIgine 100 MG TAB PO SCH (09:09)
--- NOTE | 2020-09-14 11:57 | CT ---
EXAMINATION TYPE: CT chest angio for PE DATE OF EXAM: 09/14/2020 COMPARISON: Chest x-ray 3 days ago HISTORY: Shortness of breath with history of COPD CT DLP: 469.6 mGycm Automated exposure control for dose reduction was used. CONTRAST: CTA Chest for pulmonary embolism performed with with IV Contrast, patient injected with 82 mL of Isov ue 370. MIP images are created and reviewed. FINDINGS: LUNGS: There is background mild to moderate underlying emphysematous changes greatest in the upper elidia ngs. There are small bilateral pleural effusions with associated compressive atelectasis and/or conso lidation posteriorly greatest in the lower lungs. Slightly more suspicious focal 2.1 x 1.3 cm area of oval nodule or nodular consolidation in the superior aspect left lower lobe axial image 85 should be followed after treatment of CHF exacerbation and/or possible infection to exclude underlying nodule. Patient has some motion artifact degradation particularly in the lower lungs making evaluation subop timal for subcentimeter nodules. MEDIASTINUM: There is satisfactory enhancement of the pulmonary artery and its branches, there is no CT evidence for pulmonary embolism. There are prominent bilateral hilar along with AP window and sub carinal lymph nodes. No definitive greater than 1 cm lymph nodes. No cardiomegaly or coronary artery calcification is present which is noted marker for underlying coronary artery disease. No Pericardia l effusion is seen. Some reflux of contrast into IVC and intrahepatic veins consistent with degree o f right heart failure. There is mild to moderate right atrial and right ventricular dilatation noted. Main pulmonary artery is dilated at 3.2 cm size axial image 81. OTHER: No additional significant abnormality is seen. IMPRESSION: 1. No CT evidence for acute pulmonary embolism. 2. Correlate for CHF exacerbation or fluid overload status there are small bilateral pleural effusion s. There is associated compressive atelectasis. Cannot exclude areas of underlying acute infiltrate. Suspect underlying right heart failure and pulmonary artery hypertension. Correlate clinically. Other findings as noted above.
[2020-09-14] MEDS: LACTATED RINGERS 1,000 ML IV SCH (12:06)
[2020-09-14] MEDS: LEVOFLOXACIN 500MG-D5W PMX 500 MG in DEXTROSE/WATER 1 100ML.BAG IVPB SCH (12:07)
--- NOTE | 2020-09-14 12:28 | P.PN ---
Subjective Progress Note Date: 09/14/20 65-year-old male was brought in by his for altered mental status patient is able to provide good history me alert oriented times close to 3 when I evaluated the patient but patient is a poor historian doesn't appear to have some alcohol related the encephalopathy chronic and dementia. Patient does drink alcohol every day. Not willing to quit alcohol patient is basically admitted for severe anemia with hemoglobin of around 5.5-, received are 2 units of PRBC transfusion and patient was in hemoglobin is 6.5 to give him 1 more unit of PRBC. Patient denied any blood in stools at all stools and panel will be obtained. Patient was started on Protonix. Patient is very clear about not quitting alcohol and he believes he doesn't drink much he only drinks after paint of hard liquor every day. Patient has low MCV . 09/11/2020 Patient doesn't have any more episodes of GI bleed patient can use to be in alcohol withdrawal precautions. Patient will undergo upper GI endoscopy patient is on 6 L of oxygen, chest x-ray there is a possibility of pulmonary edema. covid 19 PCI to is negative. We'll obtain a BNP and an echocardiogram. Patient blood pressure is still low because of which I'm not giving him on Lasix at this time. When his blood pressure can tolerate patient will be given a 20 mg of IV Lasix patient did urine is abnormal hand has a symptom any bacteria received antibiotics last night which will be discontinued if patient remains a bit hyponatremic still has some confusion. He is also being treated for alcohol withdrawals potassium is low which will be replaced. 09/12/2020 Patient chest x-ray from yesterday was showing bilateral infiltrates concerning for CHF or atypical pneumonia. Patient BNP is only 1400. Patient doesn't have any fevers will repeat the Covid 19 test again. Patient will be given a dose of Lasix if his blood pressure can tolerate will give another dose of Lasix will replace magnesium. Patient had an upper GI endoscopy which showed a candy latel y esophagitis because of poor prep colonoscopy was incomplete. A she is more agitated at this time. Patient will be started on levofloxacin. We will obtain EKG as patient is on multiple medications that can prolong QT including Haldol, levofloxacin, fluconazole. Patient is confused and agitated. 09/13/2020 Patient looks better today patient is was limb 4 L of oxygen patient still appears to have some pulmonary edema patient was started on 20 mg IV Lasix. Patient probably will need subacute intimidation although patient will lead prior authorization from insurance to go to subacute rehabilitation. 09/14/2020 Patient seen on follow-up, remains on 4 L nasal cannula. Not able to tolerate diuresis due to lower blood pressures. No fever, blood pressure marginal 90/59. Check CT angiogram of the chest, awaiting insurance authorization for subacute rehab. Review of systems: Unable to obtain due to confusion Objective - Vital Signs Vital signs: Vital Signs Temp 98.5 F 09/14/20 11:27 Pulse 105 H 09/14/20 11:27 Resp 20 09/14/20 11:27 BP 153/96 09/14/20 11:27 Pulse Ox 96 09/14/20 11:27 Intake & Output 09/13/20 09/14/20 09/14/20 18:59 06:59 18:59 Intake Total 720 240 Output Total 700 200 700 Balance 20 -200 -460 Weight 76.2 kg Intake: Oral 720 240 Output: Urine 700 200 700 Other: Voiding Method Urinal # Voids 1 # Bowel Movements 1 - Exam PHYSICAL EXAMINATION: GENERAL: The patient is alert and oriented x1-2, not in any acute distress. Well developed, well nourished. Patient is not agitated today. HEENT: Pupils are round and equally reacting to light. EOMI. No scleral icterus. Does have conjunctival pallor. Normocephalic, atraumatic. No pharyngeal erythema. No thyromegaly. CARDIOVASCULAR: S1 and S2 present. No murmurs, rubs, or gallops. PULMONARY: Chest is clear to auscultation, no wheezing or crackles. ABDOMEN: Soft, nontender, nondistended, normoactive bowel sounds. No palpable o rganomegaly. MUSCULOSKELETAL: No joint swelling or deformity. EXTREMITIES: No cyanosis, clubbing, or pedal edema. NEUROLOGICAL: Gross neurological examination did not reveal any focal deficits. SKIN: No rashes. - Labs CBC & Chem 7: 09/13/20 06:22 09/13/20 08:47 Assessment and Plan Assessment: Plan: -Severe anemia, symptomatic but there is no evidence of acute GI bleed at this time or any other acute bleed at this time. His hemoglobin is about 7 and stable no more GI bleed at this time. Patient underwent upper GI endoscopy and colonoscopy upper GI endoscopy showed Isabel esophagitis patient was started on flucanazole -Metabolic and toxic encephalopathy: Secondary to infection like atypical pneumonia or CHF along with the some chronic encephalopathy from alcoholism chronic -Acute hypoxic respiratory failure possibly of atypical pneumonia patient was started on levofloxacin, possibly due to CHF exacerbation however pressures will not tolerate further diuresis at this time. Check CT angiogram of the chest to rule out a potential PE. -Alcohol abuse: Patient was counseled in spite of which patient is not willing to quit alcohol. Presently confused but no other withdrawal symptoms -Hyponatremia initial hypovolemia, now hypervolemic Echocardiogram showed EF of around 45-50% possibility of congestive heart failure chronic systolic dysfunction with mild acute exacerbation -Asymptomatic bacteriuria , urine cultures are positive for gram-negative bacilli patient was started on levofloxacin mainly for possible atypical pneumonia. Covid 19 PCR is negative twice during this hospitalization -Hypertension patient is actually hypotensive hold off on amlodipine . -Tachycardia secondary to anemia, resolved DVT prophylaxis with Lovenox
[2020-09-14] MEDS: TEMAZEPAM 15 MG CAP PO SCH (19:58)
[2020-09-14] MEDS: ALBUTEROL NEBULIZED 2.5 MG/3 ML INHALATION PRN (20:11)
[2020-09-15] MEDS: FUROSEMIDE 10 MG/ML 2 ML VIAL IV SCH (04:05)
[2020-09-15] MEDS: THIAMINE 100 MG TAB PO SCH ×2 (06:45→17:05)
[2020-09-15] MEDS: SYMBICORT 160-4.5 MCG INHALER INHALATION SCH ×2 (08:25→19:32)
[2020-09-15] MEDS: ALBUTEROL NEBULIZED 2.5 MG/3 ML INHALATION PRN (08:25)
[2020-09-15] MEDS: FLUCONAZOLE 100 MG TAB PO SCH (08:40)
[2020-09-15] MEDS: ENOXAPARIN 40 MG/0.4 ML SYRINGE SQ SCH (08:40)
[2020-09-15] MEDS: PANTOPRAZOLE 40 MG/10 ML VIAL IVP SCH ×2 (08:40→20:21)
[2020-09-15] MEDS: lamoTRIgine 100 MG TAB PO SCH (08:40)
[2020-09-15] MEDS: PREGABALIN 75 MG CAP PO SCH ×2 (08:40→20:21)
[2020-09-15] MEDS: LEVOFLOXACIN 500MG-D5W PMX 500 MG in DEXTROSE/WATER 1 100ML.BAG IVPB SCH (10:27)
[2020-09-15 13:10] LABS: African American GFR (CKD) >90 (>60 ml/min/1.73 sqM); Blood Urea Nitrogen 12 mg/dL (9-20); Calcium 8.4 mg/dL (8.4-10.2); Chloride 92 mmol/L (98-107); Glucose 97 mg/dL (74-99); Non-African American GFR(CKD) >90 (>60 ml/min/1.73 sqM); Potassium 3.8 mmol/L (3.5-5.1); Sodium 130 mmol/L (137-145)
[2020-09-15 13:11] LABS: Anion Gap 7 mmol/L; Carbon Dioxide 31 mmol/L (22-30)
--- NOTE | 2020-09-15 13:27 | P.PN ---
Subjective 65-year-old male was brought in by his for altered mental status patient is able to provide good history me alert oriented times close to 3 when I evaluated the patient but patient is a poor historian doesn't appear to have some alcohol related the encephalopathy chronic and dementia. Patient does drink alcohol every day. Not willing to quit alcohol patient is basically admitted for severe anemia with hemoglobin of around 5.5-, received are 2 units of PRBC transfusion and patient was in hemoglobin is 6.5 to give him 1 more unit of PRBC. Patient denied any blood in stools at all stools and panel will be obtained. Patient was started on Protonix. Patient is very clear about not quitting alcohol and he believes he doesn't drink much he only drinks after paint of hard liquor every day. Patient has low MCV . 09/11/2020 Patient doesn't have any more episodes of GI bleed patient can use to be in alcohol withdrawal precautions. Patient will undergo upper GI endoscopy patient is on 6 L of oxygen, chest x-ray there is a possibility of pulmonary edema. covid 19 PCI to is negative. We'll obtain a BNP and an echocardiogram. Patient blood pressure is still low because of which I'm not giving him on Lasix at this time. When his blood pressure can tolerate patient will be given a 20 mg of IV Lasix patient did urine is abnormal hand has a symptom any bacteria received antibiotics last night which will be discontinued if patient remains a bit hyponatremic still has some confusion. He is also being treated for alcohol withdrawals potassium is low which will be replaced. 09/12/2020 Patient chest x-ray from yesterday was showing bilateral infiltrates concerning for CHF or atypical pneumonia. Patient BNP is only 1400. Patient doesn't have any fevers will repeat the Covid 19 test again. Patient will be given a dose of Lasix if his blood pressure can tolerate will give another dose of Lasix will replace magnesium. Patient had an upper GI endoscopy which showed a candy lately esophagitis because of poor prep colonoscopy was incomplete. A she is more agitated at this time. Patient will be started on levofloxacin. We will obtain EKG as patient is on multiple medications that can prolong QT including Haldol, levofloxacin, fluconazole. Patient is confused and agitated. 09/13/2020 Patient looks better today patient is was limb 4 L of oxygen patient still appears to have some pulmonary edema patient was started on 20 mg IV Lasix. Patient probably will need subacute intimidation although patient will lead p rior authorization from insurance to go to subacute rehabilitation. 09/14/2020 Patient seen on follow-up, remains on 4 L nasal cannula. Not able to tolerate diuresis due to lower blood pressures. No fever, blood pressure marginal 90/59. Check CT angiogram of the chest, awaiting insurance authorization for subacute rehab. 09/15/2020 Patient seen resting comfortably, appears in acute distress. He is awaiting rehab placement. On 3 L saturating above 90%. Alert, able to converse appropriately although appears to have some memory deficits. Blood pressures are marginal, we will hold IV Lasix. CT angiogram of the chest negative for PE Review of systems: CONSTITUTIONAL: Negative HEENT: negative PULMONARY: negative CARDIAC: negative MUSULOSKELETAL: negative Objective - Vital Signs Vital signs: Vital Signs Temp 98.6 F 09/15/20 11:57 Pulse 103 H 09/15/20 11:57 Resp 20 09/15/20 11:57 BP 86/62 09/15/20 11:57 Pulse Ox 93 L 09/15/20 11:57 Intake & Output 09/14/20 09/15/20 09/15/20 18:59 06:59 18:59 Intake Total 1020 150 Output Total 700 500 200 Balance 320 -500 -50 Weight 75.3 kg Intake: Intake, IV Titration 180 Amount Lactated Ringers 1,000 ml 80 @ 20 mls/hr IV .Q24H JHON Rx#:[id number] Levofloxacin 500Mg-D5w 100 Pmx 500 mg In Dextrose/ Water 1 100ml.bag @ 100 mls/hr IVPB Q24H JHON Rx#: [id number] Oral 840 150 Output: Urine 700 500 200 Other: Voiding Method Urinal # Voids 1 # Bowel Movements 1 - Exam PHYSICAL EXAMINATION: GENERAL: The patient is alert and oriented x1-2, not in any acute distress. Well developed, well nourished. Patient is not agitated today. HEENT: Pupils are round and equally reacting to light. EOMI. No scleral icterus. Does have conjunctival pallor. Normocephalic, atraumatic. No pharyngeal er ythema. No thyromegaly. CARDIOVASCULAR: S1 and S2 present. No murmurs, rubs, or gallops. PULMONARY: Chest is clear to auscultation, no wheezing or crackles. ABDOMEN: Soft, nontender, nondistended, normoactive bowel sounds. No palpable organomegaly. MUSCULOSKELETAL: No joint swelling or deformity. EXTREMITIES: No cyanosis, clubbing, or pedal edema. NEUROLOGICAL: Gross neurological examination did not reveal any focal deficits. SKIN: No rashes. - Labs CBC & Chem 7: 09/13/20 06:22 09/15/20 12:15 Labs: Abnormal Lab Results - Last 24 Hours (Table) 09/15/20 Range/Units 12:15 Sodium 130 L (137-145) mmol/L Chloride 92 L (98-107) mmol/L Carbon Dioxide 31 H (22-30) mmol/L Assessment and Plan Assessment: Plan: -Severe anemia, symptomatic but there is no evidence of acute GI bleed at this time or any other acute bleed at this time. His hemoglobin is about 7 and stable no more GI bleed at this time. Patient underwent upper GI endoscopy and colonoscopy upper GI endoscopy showed Isabel esophagitis patient was started on flucanazole -Metabolic and toxic encephalopathy: Secondary to infection like atypical pneumonia or CHF along with the some chronic encephalopathy from alcoholism chronic -Acute hypoxic respiratory failure possibly of atypical pneumonia patient was started on levofloxacin, possibly due to CHF exacerbation however pressures will not tolerate further diuresis at this time. CTA chest negative for PE -Alcohol abuse: Patient was counseled in spite of which patient is not willing to quit alcohol. Presently confused but no other withdrawal symptoms -Hyponatremia initial hypovolemia, now hypervolemic Echocardiogram showed EF of around 45-50% possibility of congestive heart failure chronic systolic dysfunction with mild acute exacerbation. I recommend holding marginal blood pressure. -Asymptomatic bacteriuria , urine cultures are positive for gram-negative bacilli patient was started on levofloxacin mainly for possible atypical pneumonia. Covid 19 PCR is negative twice during this hospitalization -Hypertension patient is actually hypotensive hold off on amlodipine and Lasix. -Tachycardia secondary to anemia, resolved DVT prophylaxis with Lovenox
[2020-09-15] MEDS: LACTATED RINGERS 1,000 ML IV SCH (16:58)
[2020-09-15] MEDS: TEMAZEPAM 15 MG CAP PO SCH (20:21)
[2020-09-16] MEDS: THIAMINE 100 MG TAB PO SCH (06:28)
[2020-09-16 07:33] LABS: African American GFR (CKD) >90 (>60 ml/min/1.73 sqM); Anion Gap 6 mmol/L; Blood Urea Nitrogen 8 mg/dL (9-20); Calcium 8.4 mg/dL (8.4-10.2); Carbon Dioxide 30 mmol/L (22-30); Chloride 97 mmol/L (98-107); Glucose 101 mg/dL (74-99); Non-African American GFR(CKD) >90 (>60 ml/min/1.73 sqM); Sodium 133 mmol/L (137-145)
[2020-09-16] MEDS: SYMBICORT 160-4.5 MCG INHALER INHALATION SCH (08:07)
[2020-09-16 08:52] VITALS: TEMP 98.2
[2020-09-16] MEDS ORDERED: LEVOFLOXACIN 500 MG TAB PO SCH (09:00)
[2020-09-16] MEDS: PANTOPRAZOLE 40 MG/10 ML VIAL IVP SCH (09:44)
[2020-09-16] MEDS: FLUCONAZOLE 100 MG TAB PO SCH (09:44)
[2020-09-16] MEDS: lamoTRIgine 100 MG TAB PO SCH (09:44)
[2020-09-16] MEDS: ENOXAPARIN 40 MG/0.4 ML SYRINGE SQ SCH (09:44)
[2020-09-16] MEDS: PREGABALIN 75 MG CAP PO SCH (09:44)
[2020-09-16 11:28] LABS: Anisocytosis Marked; HGB 7.3 gm/dL (13.0-17.5); Hypochromasia Marked; MCH 21.2 pg (25.0-35.0); MCHC 29.4 g/dL (31.0-37.0); MCV 72.1 fL (80.0-100.0); Mean Platelet Volume 7.9; Microcytosis Marked; Platelet Count 387 k/uL (150-450); Poikilocytosis Moderate; RBC 3.47 m/uL (4.30-5.90); WBC 5.4 k/uL (3.8-10.6)
[2020-09-16 11:30] LABS: RDW 25.5 % (11.5-15.5)
--- NOTE | 2020-09-16 12:23 | P.DS ---
Providers Date of admission: 09/09/20 17:21 Expected date of discharge: 09/16/20 Attending physician: Yaa Hannah Primary care physician: Melita Patrick [place] [facility] Course: Final Diagnosis -Severe anemia, symptomatic but there is no evidence of acute GI bleed at this time or any other acute bleed at this time -Metabolic and toxic encephalopathy: Secondary to infection like atypical pneumonia or CHF along with the some chronic encephalopathy from alcoholism chronic -Acute hypoxic respiratory failure possibly of atypical pneumonia or possibly due to CHF exacerbation -Alcohol abuse -Hyponatremia initial hypovolemia, now hypervolemic Echocardiogram showed EF of around 45-50% possibility of congestive heart failure chronic systolic dysfunction with mild acute exacerbation -Asymptomatic bacteriuria , urine cultures are positive for gram-negative bacilli patient was started on levofloxacin mainly for possible atypical pneumonia. -Covid 19 PCR is negative twice during this hospitalization -Hypertension patient is actually hypotensive -Tachycardia secondary to anemia, resolved -DVT prophylaxis -Full code Discharge disposition Patient is being discharged in a stable condition with guarded prognosis to [facility] for continued PT/OT therapy. Patient will follow-up with Dr. Carmichael in the outpatient setting upon discharge. Patient also instructed to follow-up with GI Dr. Miller in the outpatient setting in 2 weeks for colonoscopy. Total time taken is greater than 35 minutes. Hospital course This is a 65-year-old male who was recently admitted with mental status with some possible alcohol-related encephalopathy chronic and possible dementia and was being closely monitored. Patient was also noted to have severe anemia on admission with a hemoglobin of 5.5 and received 3 units of PRBCs during hospitalization. Hemoglobin is stable and is currently 7.3 today. Attempts at colonoscopy were done during hospitalization although bowel prep was insufficient and GI will be following up outpatient in 1-2 weeks for colonoscopy outpatient. Patient underwent chest CTA showing no evidence of PE with possible CHF or fluid overload. Patient was diuresed with Lasix. Currently no reports of chest pain, shortness of breath, or palpitations. Patient is afebrile. No reports of nausea or vomiting and patient is tolerating diet. Patient will be going to [facility] today. On exam vital signs are stable. Cardio S1, S2 are muffled. Respiratory system shows diminished breath sounds at the bases with no wheezing or rhonchi noted. Abdomen is soft and nontender. Nervous system shows diffuse weakness. Please refer to medication reconciliation sheet for a list of medications. Patient Condition at Discharge: Stable Plan - Discharge Summary Discharge Rx Participant: No New Discharge Prescriptions: New Fluconazole [Diflucan] 100 mg PO DAILY 7 Days #7 tab Levofloxacin [Levaquin] 500 mg PO DAILY 5 Days #5 tab Pantoprazole Sodium [Protonix] 40 mg PO DAILY #30 tablet. QUEtiapine [SEROquel] 25 mg PO HS PRN tab PRN Reason: Agitation Thiamine [Vitamin B-1] 100 mg PO BID-W/MEALS tab Continue Albuterol Inhaler [Ventolin Hfa Inhaler] 2 puff INHALATION RT-Q6H PRN PRN Reason: Shortness Of Breath amLODIPine [Norvasc] 10 mg PO DAILY Budesonide/Formoterol Fumarate [Symbicort 160-4.5 Mcg Inhaler] 2 puff INHALATION RT-BID Ramelteon [Rozerem] 8 mg PO HS lamoTRIgine [LaMICtal] 300 mg PO DAILY #6 tab Pregabalin [Lyrica] 75 mg PO BID #6 cap Discontinued clonazePAM [KlonoPIN] 1 mg PO HS PRN PRN Reason: Insomnia Zolpidem Tartrate [Zolpidem Tartrate ER] 12.5 mg PO HS PRN PRN Reason: Insomnia Discharge Medication List Albuterol Inhaler [Ventolin Hfa Inhaler] 2 puff INHALATION RT-Q6H PRN 09/09/20 [History] Budesonide/Formoterol Fumarate [Symbicort 160-4.5 Mcg Inhaler] 2 puff INHALATION RT-BID 09/09/20 [History] Ramelteon [Rozerem] 8 mg PO HS 09/09/20 [History] amLODIPine [Norvasc] 10 mg PO DAILY 09/09/20 [History] Fluconazole [Diflucan] 100 mg PO DAILY 7 Days #7 tab 09/11/20 [Rx] Levofloxacin [Levaquin] 500 mg PO DAILY 5 Days #5 tab 09/16/20 [Rx] Pantoprazole Sodium [Protonix] 40 mg PO DAILY #30 tablet. 09/16/20 [Rx] Pregabalin [Lyrica] 75 mg PO BID #6 cap 09/16/20 [Rx] QUEtiapine [SEROquel] 25 mg PO HS PRN tab 09/16/20 [Rx] Thiamine [Vitamin B-1] 100 mg PO BID-W/MEALS tab 09/16/20 [Rx] lamoTRIgine [LaMICtal] 300 mg PO DAILY #6 tab 09/16/20 [Rx] Follow up Appointment(s)/Referral(s): Melita Patirck MD [Primary Care Provider] - 1-2 days Everett Miller MD [STAFF PHYSICIAN] - 2 Weeks (Needs outpatient colonoscopy) Ambulatory/Diagnostic Orders: Complete Blood Count w/diff [LAB.AMB] Time Frame: 3 Days, Location: None Selected Activity/Diet/Wound Care/Special Instructions: Patient is going to [facility] Activity as tolerated Continue current diet Repeat labs to monitor hemoglobin in 2-3 days Follow up with GI in the outpatient setting for outpatient colonoscopy Discharge Disposition: TRANSFER TO SNF/ECF
[2020-09-16 13:10] VITALS: BP 89/56; PULSE 89; RESP 20
[2020-09-16 14:25] VITALS: BMI 21.9
== END 2020-09-16 15:30 | DRG 811 ==
LOC: EC 13:52 → 3SCARD 17:21
PROVIDERS: ADMIT Internal Medicine; ATTEND Internal Medicine
PROC: 30233N1 Transfusion of Nonautologous Red Blood Cells into Peripheral Vein, Percutaneous Approach (ICD-10-PCS; 2020-09-09)
PROC: 5A0935A Assistance with Respiratory Ventilation, Less than 24 Consecutive Hours, High Flow/Velocity Cannula (ICD-10-PCS; 2020-09-11)
PROC: 0DJD8ZZ Inspection of Lower Intestinal Tract, Via Natural or Artificial Opening Endoscopic (ICD-10-PCS; principal; 2020-09-11 12:40)
PROC: 0DB48ZX Excision of Esophagogastric Junction, Via Natural or Artificial Opening Endoscopic, Diagnostic (ICD-10-PCS; principal; 2020-09-11 12:40)
PROC: 0DB98ZX Excision of Duodenum, Via Natural or Artificial Opening Endoscopic, Diagnostic (ICD-10-PCS; principal; 2020-09-11 12:40)
PROC: 0DB28ZX Excision of Middle Esophagus, Via Natural or Artificial Opening Endoscopic, Diagnostic (ICD-10-PCS; principal; 2020-09-11 12:40)
DX: D50.9 Iron deficiency anemia, unspecified (principal); G92 Toxic encephalopathy; I50.23 Acute on chronic systolic (congestive) heart failure; J18.9 Pneumonia, unspecified organism; J96.01 Acute respiratory failure with hypoxia; B37.81 Candidal esophagitis; E87.1 Hypo-osmolality and hyponatremia; F10.239 Alcohol dependence with withdrawal, unspecified; N17.9 Acute kidney failure, unspecified; Q39.6 Congenital diverticulum of esophagus; F10.27 Alcohol dependence with alcohol-induced persisting dementia; E78.5 Hyperlipidemia, unspecified; E86.1 Hypovolemia; Z71.41 Alcohol abuse counseling and surveillance of alcoholic; Z20.822 Contact with and (suspected) exposure to COVID-19; F17.210 Nicotine dependence, cigarettes, uncomplicated; F32.9 Major depressive disorder, single episode, unspecified; F41.9 Anxiety disorder, unspecified; G31.2 Degeneration of nervous system due to alcohol; I11.0 Hypertensive heart disease with heart failure; K29.70 Gastritis, unspecified, without bleeding; K44.9 Diaphragmatic hernia without obstruction or gangrene; Z79.51 Long term (current) use of inhaled steroids; Z79.899 Other long term (current) drug therapy; R45.1 Restlessness and agitation; R00.0 Tachycardia, unspecified; R82.71 Bacteriuria; Z53.09 Procedure and treatment not carried out because of other contraindication; E87.6 Hypokalemia; I95.9 Hypotension, unspecified
CPT/HCPCS: 36415; 43239; 45378; 70450; 71046; 71275; 80048; 80053; 80306; 81001; 82140; 82272; 83540; 83550; 83735; 83880; 84132; 84484; 85025; 85027; 85610; 85730; 86850; 86900; 86901; 86920; 87077; 87086; 87186; 87635; 88305; 93005; 93306; 94640; 94760; 96374; 99285

== ENCOUNTER 2021-06-15 16:13 | Emergency (ER) | payer MEDICARE ==
[2021-06-15 16:24] VITALS: RESP 18
[2021-06-15] MEDS ORDERED: HYDROmorphone 1 MG/ML 1 ML SYRINGE IVP STA (16:44)
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
[2021-06-15 18:36] VITALS: PULSE 86; TEMP 98.1
[2021-06-15 18:59] VITALS: BP 127/72
== END 2021-06-15 19:00 | disposition other institution (70) ==
LOC: EC 16:13
DX: T24.102A Burn of first degree of unspecified site of left lower limb, except ankle and foot, initial encounter (principal); T23.131A Burn of first degree of multiple right fingers (nail), not including thumb, initial encounter; T31.0 Burns involving less than 10% of body surface; I10 Essential (primary) hypertension; F41.9 Anxiety disorder, unspecified; F32.A Depression, unspecified; F17.200 Nicotine dependence, unspecified, uncomplicated; X19.XXXA Contact with other heat and hot substances, initial encounter
CPT/HCPCS: 99284; 96374; J1170